=== PATIENT | male | born 1995 | race African-American/Black ===

== ENCOUNTER 2019-07-13 10:02 | Emergency (ER) | payer OTHER ==
[2019-07-13] MEDS ORDERED: Lidocaine 2% PF 5 ML VIAL ONE (11:24)
[2019-07-13] MEDS ORDERED: Lidocaine 1% PF 5 ML VIAL ONE (11:24)
[2019-07-13] MEDS ORDERED: Lidocaine 1% w/Epinephrine 1:100K 20 ML VIAL ONE (11:25)
[2019-07-13] MEDS ORDERED: Bacitracin 1 PK ONE (12:26)
== END 2019-07-13 12:36 ==
LOC: ERS 10:02 → EEVIPCON 10:02 → ERS 12:36
DX: S01.01XA Laceration without foreign body of scalp, initial encounter (principal); W22.8XXA Striking against or struck by other objects, initial encounter
CPT/HCPCS: 12001; J2001